=== PATIENT | male | born 1990 | race Caucasian/White ===

== ENCOUNTER → 2024-01-03 | Outpatient (BNVA) | payer BC, SELFPAY | END | disposition home or self-care (01) | PROVIDERS: PCP Family Medicine; Referring Provider Family Medicine; Visit Provider Urology | DX: N40.0 Benign prostatic hyperplasia without lower urinary tract symptoms (principal); Z30.2 Encounter for sterilization | CPT/HCPCS: 99212; G0463 ==

== ENCOUNTER 2024-02-13 09:20 | Day surgery (SDC) | payer BC, SELFPAY ==
[2024-02-13 09:40] VITALS: BP 123/93; PULSE 56; RESP 16; TEMP 36.4; O2SAT 99
[2024-02-13] MEDS: RINGERS LACTATED 500 ML 500 ML 20 ML IV (10:24)
[2024-02-13 13:32] VITALS: BP 119/65; PULSE 66; RESP 17; TEMP 36.5; O2SAT 94
--- NOTE | 2024-02-13 13:32 | SUR.PHASEII ---
1332: Pt. AAOx4, vitals stable, breathing unlabored, no complaint of pain or nausea, dressing to groin CDI, no active bleed noted, report received from MD Avila and Konstantin SIMON.
[2024-02-13 13:37] VITALS: BP 112/67; PULSE 61; RESP 16; TEMP 36.4; O2SAT 95
--- NOTE | 2024-02-13 13:39 | PD.SUROPNT ---
Date of Procedure 02/13/24 Pre Op Diagnosis Elective sterilization Post Op Diagnosis Same Procedure Bilateral vasectomy Findings Thickened cord structures and bilateral vas Procedure Description Indication for procedure this is a 33-year-old gentleman he is with children desired bilateral vasectomy procedure and complications of which were discussed with the patient in great detail informed consent is obtained he understood very well there is no warranty for permanent sterilization literature regarding bilateral vasectomy was provided to the patient This is [id number] male came for bilateral vasectomy procedure and complications were discussed with patient in great detail informed consent was obtained patient understood very well there is no warranty for permanent sterilization. Procedure patient was brought to the operating room in a satisfactory condition after appropriate premedication was put on the operating table in a supine position he was appropriately identified by surgeon and operating room staff site scope and indications of the procedure were revisited with the patient next with general anesthesia was given uneventfully parts were prepped and draped in a usual sterile fashion. Next the right vas deferens was palpated between 2 fingers and a thumb 2% lidocaine with quarter percent Marcaine was instilled appropriately vertical skin incision was made proper hemostasis was secured. Next the vas deferens was brought into the incision it was from its various fascial coverings between 2 silver clips centimeter of the vas deferens was excised. The lumen of the vas deferens was diathermized with coagulation diathermy distal end of the vas deferens was buried between various fascial layers. Skin was approximated with 3-0 chromic. Similar procedure was repeated on the opposite side. Next this sterile dressings were applied. Pressure bandage was given Patient having tolerated the procedure well and was sent to recovery room in a satisfactory condition to be discharged home with full postoperative instructions were verbally as well as in writing to be followed in urology office in 12 weeks' time. Anesthesia GETA Pathology / specimen None Estimated Blood Loss 0.5 Condition Stable Disposition PACU Surgeon Diego Villatoro MD Surgical Staff Operation Date: 02/13/24 11:45 Case Staff Anesthesiologist: Yobani Avila
[2024-02-13 13:42] VITALS: BP 122/74; PULSE 73; RESP 17; TEMP 36.4; O2SAT 95
[2024-02-13 13:47] VITALS: BP 125/75; PULSE 60; RESP 16; TEMP 36.6; O2SAT 95
[2024-02-13 14:02] VITALS: BP 124/76; PULSE 62; RESP 16; TEMP 36.6; O2SAT 96
--- NOTE | 2024-02-13 14:08 | SUR.PHASEII ---
1408: Pt. AAOx4, vitals stable, breathing unlabored, no complaint of pain or nausea, dressing to groin CDI, no active bleed noted, pt. tolerated sips of water well, pt. ambulated to wheelchair with steady gait and no assist, no complications. Gave discharge instructions to the pt. and his ride, both verbalized understanding and had no further questions. Pt. left with all personal belongings.
== END 2024-02-13 14:08 | disposition home or self-care (01) ==
PROVIDERS: PCP Family Medicine; Referring Provider Urology; Visit Provider Urology
PROC: (CPT 55250; principal; 2024-02-13 11:30)
DX: Z30.2 Encounter for sterilization (principal)
CPT/HCPCS: 55250; A4649; J1885; J2250; J2704; J3010; J3490; J7120; A9270

== ENCOUNTER → 2024-05-30 | Outpatient (CLI) | payer BC, SELFPAY ==
[2024-05-30 17:48] LABS: Amphetamine/Methamp Scrn,U Negative (Negative); Barbiturate Screen,Urine Negative (Negative); Benzodiazepines Screen,Urine Positive (Negative); Benzoylecgonine Screen, Ur Negative (Negative); Fentanyl Screen,Urine Negative (Negative); Opiate Screen,Urine Positive (Negative); THC Screen,Urine Negative (Negative)
== END | disposition home or self-care (01) ==
LOC: SLDO 16:56
PROVIDERS: PCP Family Medicine; Referring Provider Family Medicine; Visit Provider Family Medicine
DX: Z71.51 Drug abuse counseling and surveillance of drug abuser (principal); M54.2 Cervicalgia
CPT/HCPCS: 80307

== ENCOUNTER → 2024-06-19 | Outpatient (CLI) | payer BC, SELFPAY ==
[2024-06-19 12:30] LABS: Post Vasectomy Sperm Presence No Spermatozoa Seen (No Sperm)
== END | disposition home or self-care (01) ==
LOC: SLDO 11:41
PROVIDERS: Referring Provider Urology; Visit Provider Urology
DX: Z30.2 Encounter for sterilization (principal)
CPT/HCPCS: 89321